=== PATIENT | female | born 1990 | race Hispanic/Latino ===

== ENCOUNTER 2021-10-12 02:43 | Inpatient (IN) | payer MEDICAID, OTHER, SELFPAY ==
[2021-10-12 03:04] VITALS: BMI 29.7
[2021-10-12] MEDS ORDERED: Ondansetron PF 4 MG/2 ML Vial IVP PRN ×2 (03:30→05:09)
[2021-10-12] MEDS ORDERED: Promethazine HCl 25 MG/ML VIAL IM PRN ×2 (03:30→05:09)
[2021-10-12] MEDS ORDERED: hydrALAZINE 20 MG/ML VIAL SLOW IVP PRN ×2 (03:30→05:09)
[2021-10-12] MEDS: NS w/ Oxytocin 30 units 500 ML ONE ×2 (03:37→04:41)
[2021-10-12 03:48] LABS: Hemoglobin 14.1 g/dL (12.0-15.5); Mean Corpuscular HGB CONC 34.2 g/dL (32.0-36.0); Mean Corpuscular Hemoglobin 30.8 pg (27.0-33.0); Mean Platelet Volume 10.8 fl (7.4-10.4); Platelet Count 233 10x3/uL (150-450); RBC Distribution Width 12.7 % (11.5-14.5); Red Blood Cell (RBC) Count 4.58 10x6/uL (3.90-5.03); White Blood Cell (WBC) Count 8.4 10x3/uL (3.5-10.5)
[2021-10-12 04:16] LABS: HIV (1/2) Antibody/Antigen Non-Reactive (NonReactive); HIV 1/2 INDEX 0.07 S/CO (<1.00); Hep B Surf Ag Non-Reactive S/CO (NonReactive); Syphilis Antibody Nonreactive (Nonreactive); Syphilis Antibody Index 0.07 S/CO (<1.00 Non-Reactive)
[2021-10-12 04:30] LABS: HBSAg Index 0.18 S/CO (0-0.99)
[2021-10-12] MEDS ORDERED: NS w/ Oxytocin 30 units 500 ML ONE (04:44)
[2021-10-12] MEDS ORDERED: HYDROcodone/Acetaminophen 5/325 mg Tablet PO PRN ×2 (05:09)
[2021-10-12] MEDS ORDERED: Boostrix 0.5 ML (Tdap) VIAL IM ONE (05:09)
[2021-10-12] MEDS ORDERED: Benzocaine-Menthol 82.5 ML CAN TOP PRN (05:09)
[2021-10-12] MEDS ORDERED: Lanolin Ointment 7 GM TUBE TOP PRN (05:09)
[2021-10-12] MEDS ORDERED: NS w/ Oxytocin 30 units 500 ML IV SCH (05:09)
[2021-10-12] MEDS ORDERED: Bisacodyl 10 MG SUPP PR PRN (05:09)
[2021-10-12] MEDS ORDERED: Milk Of Magnesia 30 ML UDCUP PO PRN (05:09)
[2021-10-12 05:48] LABS: SARS-CoV-2 NAA Rapid Test Not Detected (NotDetected)
[2021-10-12] MEDS: Ferrous Sulfate 325 MG TAB PO SCH ×2 (08:55→14:02)
[2021-10-12] MEDS: Docusate 100 MG CAP PO SCH ×2 (09:02→21:03)
[2021-10-12] MEDS: Prenatal Vitamin 1 TAB PO SCH (09:02)
[2021-10-12] MEDS: Ibuprofen 800 MG TAB PO SCH ×3 (09:02→21:03)
[2021-10-13] MEDS: Ibuprofen 800 MG TAB PO SCH ×2 (05:39→14:08)
[2021-10-13] MEDS: Ferrous Sulfate 325 MG TAB PO SCH (07:22)
[2021-10-13] MEDS: Docusate 100 MG CAP PO SCH (07:27)
[2021-10-13] MEDS: Prenatal Vitamin 1 TAB PO SCH (07:27)
[2021-10-13 11:29] VITALS: BP 130/74; TEMP 98.1
== END 2021-10-13 16:00 | disposition home or self-care (01) | DRG 807 ==
LOC: CSHLD/OP 02:43 → CSHLD 03:12 → CSHPP 08:23
PROVIDERS: ADMIT Family Medicine; ATTEND Family Medicine
PROC: 10E0XZZ Delivery of Products of Conception, External Approach (ICD-10-PCS; principal; 2021-10-12)
DX: O34.211 Maternal care for low transverse scar from previous cesarean delivery (principal); Z37.0 Single live birth; Z20.822 Contact with and (suspected) exposure to COVID-19; Z3A.39 39 weeks gestation of pregnancy
CPT/HCPCS: 85027; 86780; 86850; 86900; 86901; 87340; 87389; 99285; J2590; U0002